=== PATIENT | male | born 2000 | race African-American/Black ===

== ENCOUNTER 2021-02-06 14:08 | Emergency (ER) | payer SELFPAY ==
[~2021-02-06] VITALS: Ht 177.8 cm; Wt 105.0 kg
[2021-02-06] MEDS ORDERED: TRAZ-251 PO (14:27)
[2021-02-06] MEDS ORDERED: IBUPROFEN 400MG TABLET PO ONE (18:00)
[2021-02-06] MEDS ORDERED: IBUP-2028 MT (18:21)
[2021-02-06 19:17] VITALS: BP 127/56
== END 2021-02-06 19:22 | disposition home or self-care (01) ==
LOC: ER 14:08
DX: M25.561 Pain in right knee (principal); Z86.59 Personal history of other mental and behavioral disorders
CPT/HCPCS: 73562; 99283

== ENCOUNTER 2023-06-07 00:23 | Emergency (ER) | payer MEDICAID ==
[~2023-06-07] VITALS: Ht 172.7 cm; Wt 76.0 kg
[~2023-06-07 00:23] MED LIST: IBUP-2028 MT; TRAZ-251 PO
[2023-06-07 00:25] VITALS: BP 128/86; PULSE 80; RESP 15; TEMP 98.5; O2SAT 99
[2023-06-07] MEDS ORDERED: SODIUM CHLORIDE 0.9% 1,000 ML IV ONE (00:45)
[2023-06-07] MEDS ORDERED: KETOROLAC 15MG/ML VIAL IV ONE (00:45)
[2023-06-07 01:39] LABS: CLARITY URINE CLEAR (CLEAR); COLOR URINE YELLOW (YELLOW); GLUCOSE URINE NEGATIVE (NEGATIVE); KETONES URINE NEGATIVE (NEGATIVE); LEUKOCYTE ESTERASE URINE 2+ (NEGATIVE); NITRITE URINE NEGATIVE (NEGATIVE); OCCULT BLOOD URINE NEGATIVE (NEGATIVE); PROTEIN URINE NEGATIVE (NEGATIVE); SPECIFIC GRAVITY URINE 1.021 (1.005-1.030)
[2023-06-07] MEDS ORDERED: DOXY100T28 MT (02:08)
[2023-06-07] MEDS ORDERED: NAPR275T96 MT (02:08)
[2023-06-07] MEDS ORDERED: DOXYCYCLINE HYCLATE 100MG CAPSULE PO NR (02:15)
[2023-06-07] MEDS ORDERED: ACETAMINOPHEN 325MG TABLET PO NR (02:15)
[2023-06-07] MEDS ORDERED: CEFTRIAXONE SODIUM 500 MG/VIAL IM NR ×2 (02:15→02:45)
[2023-06-07 02:21] LABS: SQUAMOUS EPITHELIAL CELL URINE FEW /lpf (RARE/1+); WBC URINE 25-50 /hpf (0-2)
[2023-06-07 02:22] LABS: RBC URINE 0-2 /hpf (0-2)
[2023-06-07 02:23] LABS: BACTERIA URINE NONE SEEN
[2023-06-07] MEDS ORDERED: LIDOCAINE HCL 1% 20ML VIAL (Pyxis) INJ MC NR ×2 (02:45)
== END 2023-06-07 02:49 | disposition home or self-care (01) ==
LOC: ER 00:23
DX: N45.1 Epididymitis (principal); F31.9 Bipolar disorder, unspecified; F20.9 Schizophrenia, unspecified
CPT/HCPCS: 99285; 96374; 93976; 96361; 81003; 87086; 76870; 87591; 96372; J0696; J1885; J3490; J7030

== ENCOUNTER 2023-06-25 15:12 | Emergency (ER) | payer MEDICAID ==
[~2023-06-25] VITALS: Ht 167.6 cm; Wt 61.0 kg
[~2023-06-25 15:12] MED LIST changes: +DOXY100T28 MT; +NAPR275T96 MT
[2023-06-25 15:23] VITALS: BP 103/60; PULSE 60; RESP 18; TEMP 98.6; O2SAT 99
[2023-06-25 20:10] LABS: BASOPHILS % 0.2 % (0.0-2.0); EOSINOPHILS % 0.3 % (0.0-5.0); HEMATOCRIT. 43.5 % (42.0-52.0); HEMOGLOBIN. 14.1 g/dL (14.0-18.0); LYMPHOCYTES % 21.1 % (20.0-50.0); MEAN CORPUSCULAR HEMOGLOBIN 29.1 pg (28.0-32.0); MEAN CORPUSCULAR HGB CONC 32.5 g/dL (31.0-37.0); MEAN CORPUSCULAR VOLUME 89.5 fL (80.0-94.0); MEAN PLATELET VOLUME 8.2 fl (7.4-10.4); NEUTROPHILS % 74.4 % (40.0-76.0); PLATELET 245 x1000/uL (130-400); RED BLOOD CELL COUNT 4.85 mill/uL (4.7-6.1); RED CELL DISTRIBUTION WIDTH 13.7 % (11.6-14.6); WHITE BLOOD COUNT 12.8 x1000/uL (4.5-11.0)
[2023-06-25 20:21] LABS: PROTHROMBIN TIME 11.2 sec (9.6-11.0)
[2023-06-25 20:25] LABS: ALANINE AMINOTRANSFERASE 13 IU/L (10-49); ALBUMIN 4.1 g/dL (3.2-4.8); ASPARTATE AMINOTRANSFERASE 14 IU/L (<34); BILIRUBIN TOTAL 0.6 mg/dL (0.1-1.0); CALCIUM 9.2 mg/dL (8.7-10.4); CARBON DIOXIDE 26 mEq/L (21-32); CHLORIDE 105 mEq/L (98-107); CREATININE 0.8 mg/dL (0.6-1.3); GLUCOSE 87 mg/dL (70-105); POTASSIUM 3.9 mEq/L (3.5-5.1); PROTEIN TOTAL 7.2 g/dL (6.0-8.3); SODIUM 137 mEq/L (136-145); UREA NITROGEN BLOOD 12 mg/dL (9-23)
[2023-06-25 20:26] LABS: TROPONIN I HIGH SENSITIVITY < 4 ng/L (3.0-53)
== END 2023-06-25 20:03 | disposition left against medical advice (07) ==
LOC: ER 15:12
DX: R10.9 Unspecified abdominal pain (principal); Z86.59 Personal history of other mental and behavioral disorders
CPT/HCPCS: 36415; 74176; 80053; 84484; 85025; 99284

== ENCOUNTER 2024-03-24 01:25 | Emergency (ER) | payer SELFPAY ==
[~2024-03-24] VITALS: Ht 182.9 cm; Wt 100.0 kg
[2024-03-24 01:58] VITALS: TEMP 97.8; O2SAT 99
[2024-03-24] MEDS ORDERED: IBUPROFEN 400MG TABLET PO ONE (02:00)
[2024-03-24] MEDS: IBUPROFEN 400MG TABLET PO NR (03:05)
[2024-03-24] MEDS ORDERED: NAPR-1176 MT (03:12)
[2024-03-24] MEDS ORDERED: LIDO700A15 TP (03:12)
[2024-03-24 03:25] VITALS: BP 128/72; PULSE 72; RESP 16; O2SAT 99
== END 2024-03-24 03:29 | disposition home or self-care (01) ==
LOC: ER 01:25
DX: M25.561 Pain in right knee (principal); Z79.1 Long term (current) use of non-steroidal anti-inflammatories (NSAID)
CPT/HCPCS: 73562; 99283

== ENCOUNTER 2024-08-14 22:28 | Emergency (ER) | payer MEDICAID ==
[~2024-08-14] VITALS: Ht 170.2 cm; Wt 68.0 kg
[~2024-08-14 22:28] MED LIST changes: +LIDO700A15 TP; +NAPR-1176 MT
[2024-08-14 22:30] VITALS: O2SAT 98
[2024-08-14] MEDS: KETOROLAC 30MG/ML VIAL IM ONE (22:57)
[2024-08-14 23:25] LABS: BASOPHILS % 0.5 % (0.0-2.0); EOSINOPHILS % 1.9 % (0.0-5.0); HEMOGLOBIN. 14.4 g/dL (14.0-18.0); LYMPHOCYTES % 25.1 % (20.0-50.0); MEAN CORPUSCULAR HEMOGLOBIN 30.5 pg (28.0-32.0); MEAN CORPUSCULAR HGB CONC 34.3 g/dL (31.0-37.0); MEAN CORPUSCULAR VOLUME 88.9 fL (80.0-94.0); MEAN PLATELET VOLUME 7.7 fl (7.4-10.4); MONOCYTES % 8.3 % (2.0-8.0); NEUTROPHILS % 64.2 % (40.0-76.0); PLATELET 246 x1000/uL (130-400); RED BLOOD CELL COUNT 4.72 mill/uL (4.7-6.1); RED CELL DISTRIBUTION WIDTH 13.4 % (11.6-14.6); WHITE BLOOD COUNT 7.9 x1000/uL (4.5-11.0)
[2024-08-14 23:29] LABS: CHLORIDE 105 mEq/L (98-107); POTASSIUM 3.8 mEq/L (3.5-5.1); SODIUM 138 mEq/L (136-145)
[2024-08-14 23:30] LABS: CALCIUM 9.2 mg/dL (8.7-10.4); CARBON DIOXIDE 25 mEq/L (21-32)
[2024-08-14 23:35] LABS: GLUCOSE 111 mg/dL (70-105); UREA NITROGEN BLOOD 17 mg/dL (9-23)
[2024-08-14 23:37] LABS: ALANINE AMINOTRANSFERASE 16 IU/L (10-49); ASPARTATE AMINOTRANSFERASE 16 IU/L (<34); BILIRUBIN DIRECT 0.1 mg/dL (<=3.0)
[2024-08-14 23:38] LABS: BILIRUBIN TOTAL 0.5 mg/dL (0.1-1.0); PROTEIN TOTAL 6.6 g/dL (6.0-8.3)
[2024-08-15] MEDS ORDERED: IBUP-2028 MT (00:26)
[2024-08-15 00:55] VITALS: BP 102/60; PULSE 82; RESP 18; TEMP 36.4; O2SAT 100
== END 2024-08-15 00:58 | disposition home or self-care (01) ==
LOC: ER 22:28
DX: R10.31 Right lower quadrant pain (principal); F20.9 Schizophrenia, unspecified; F31.9 Bipolar disorder, unspecified; Z79.1 Long term (current) use of non-steroidal anti-inflammatories (NSAID)
CPT/HCPCS: 99284; 74176; 80076; 80048; 83690; 85025; 36415; J1885